=== PATIENT | male | born 1945 | race Caucasian/White ===

== ENCOUNTER 2017-09-08 18:26 | Emergency (ER) | payer OTHER ==
--- NOTE | 2017-09-08 18:49 | EDPHY ---
H & P Stated Complaint: anxiety Source: Patient Exam Limitations: No limitations - Personal History Current Tetanus Diphtheria and Acellular Pertussis (TDAP): Yes - Medical/Surgical History Hx Asthma: No Hx Chronic Respiratory Disease: No Hx Diabetes: No Hx Cardiac Disease: Yes Hx Renal Disease: No Hx Cirrhosis: No Hx Alcoholism: No Hx HIV/AIDS: No Hx Splenectomy or Spleen Trauma: No Other PMH: HTN,CHRON'S DX,BORDERLINE PERSONALITY D/O,PTSD,. DEPRESSION. PSH-- colostomy, large bowel resection, orthopedic - Social History Smoking Status: Light smoker Alcohol Use: Sober Time Seen by Provider: 09/08/17 18:30 HPI/ROS: CHIEF COMPLAINT: Anxiety HISTORY OF PRESENT ILLNESS: The patient is a 72-year-old homeless man who called an ambulance for anxiety. He states that he was evicted from his home a few weeks ago on the [facility]. He also lost his cat. When questioned further he states that he starts to feel suicidal when he gets like this. He states that he has tried cutting his wrist before several years ago. He denies any recent drug or alcohol use. He is currently not on any medications. He denies any psychiatric diagnosis history. REVIEW OF SYSTEMS: Constitutional: denies: chills, fever, recent illness, recent injury EENTM: denies: blurred vision, double vision, nose congestion Respiratory: denies: cough, shortness of breath Cardiac: denies: chest pain, irregular heart rate, lightheadedness, palpitations Gastrointestinal/Abdominal: denies: abdominal pain, diarrhea, nausea, vomiting, blood streaked stools Genitourinary: denies: dysuria, frequency, hematuria, pain Musculoskeletal: denies: joint pain, muscle pain Skin: denies: lesions, rash, jaundice, bruising Neurological: denies: headache, numbness, paresthesia, tingling, dizziness, weakness Hematologic/Lymphatic: denies: blood clots, easy bleeding, easy bruising Immunologic/allergic: denies: HIV/AIDS, transplant EXAM: GENERAL: Well-appearing, well-nourished and in no acute distress. HEAD: Atraumatic, normocephalic. EYES: Pupils equal round and reactive to light, extraocular movements intact, sclera anicteric, conjunctiva are normal. ENT: TMs normal, nares patent, oropharynx clear without exudates. Moist mucous membranes. NECK: Normal range of motion, supple without lymphadenopathy or JVD. LUNGS: Breath sounds clear to auscultation bilaterally and equal. No wheezes rales or rhonchi. HEART: Regular rate and rhythm without murmurs, rubs or gallops. ABDOMEN: Soft, nontender, normoactive bowel sounds. No guarding, no rebound. No masses appreciated. Ostomy in place BACK: No CVA tenderness, no spinal tenderness, step-offs or deformities EXTREMITIES: Normal range of motion, no pitting or edema. No clubbing or cyanosis. NEUROLOGICAL: Cranial nerves II through XII grossly intact. Normal speech, normal gait. 5/5 strength, normal movement in all extremities, normal sensation PSYCH: Normal mood, normal affect. Initially complained of anxiety but gradually more feet in to suicidal ideation. SKIN: Warm, dry, normal turgor, no visible rashes or lesions. (Vitor Florence) Constitutional: Initial Vital Signs Temperature (C) 36.4 C 09/08/17 18:30 Heart Rate 82 09/08/17 18:30 Respiratory Rate 16 09/08/17 18:30 Blood Pressure 167/91 H 09/08/17 18:30 O2 Sat (%) 91 L 09/08/17 18:30 O2 Delivery Mode Room Air Allergies/Adverse Reactions: No Known Allergies Allergy (Verified 09/08/17 18:30) Home Medications: Medication Instructions Recorded Lisinopril 09/26/13 Prozac 10 MG (RX) 10/16/13 buPROPion [Wellbutrin 100mg (RX)] 09/19/14 traZODone [traZODONE 50MG (*)] 50 mg PO 09/19/14 Medical Decision Making ED Course/Re-evaluation: 6:40 a.m.- The patient has been stable during my shift. He was given his usual medications. He is awaiting reassessment in the morning. The case will be signed out to the oncoming provider Dr. Quintanilla. (Leigh Ruiz) 0700-I assumed care of this patient change. He has a history of anxiety and has suicidal ideation. The plan is for him to be re-evaluated this morning by mental health. 0750-Reassessment by MH, pt not suicidal, contacts for safety, plan to d/c. MH resources given. (Xiomara Quintanilla) The patient seems to be malingering. I do not feel that he is actually suicidal. I feel that he is correction seeking. His story seems to change the further he is questioned. I will obtain lab work for medical clearance and have psychiatric team evaluate. I have not placed him on a hold at this point. 7:20 p.m. Patient is medically cleared for psychiatric evaluation. 9:00 p.m. the patient is sitting in the room. He has 2 large sandwiches at his bedside and is watching TV. He has an ostomy which he is changing. Discussed the case with mental health. They also feel that he is malingering for correction. He has an appointment with his psychiatrist tomorrow morning. They initially were going to let him sleep here overnight but I feel that this is an appropriate. We will speak with a psychiatrist again about discharging him. 10:00 p.m. I spoke with mental health again. There also agrees the patient is likely malingering however they would like to get more history and observe him overnight. He is now starting to state that he occasionally hears voices telling him to kill people. Care transferred to Dr. Ruiz at shift change. ( Vitor Florence) Differential Diagnosis: Partial list of the Differential diagnosis considered include but were not limited to; malingering, anxiety, depression, suicidality and although unlikely based on the history and physical exam, I also considered the homicidality, seizure, schizophrenia. (Vitor Florence) - Data Points Laboratory Results: Laboratory Results 09/08/17 18:55 09/08/17 18:55 Medications Given: Discontinued Medications Trazodone HCl (Trazodone) 150 mg PO EDNOW ONE Stop: 09/09/17 04:00 Last Admin: 09/09/17 04:15 Dose: 150 mg Departure - Departure Disposition: Home, Routine, Self-Care Clinical Impression: Suicidal ideation Condition: Fair Instructions: Suicide Prevention for Adults (ED) Additional Instructions: Follow-up with mental health as suggested. The [facility] has walk-in appointments for the homeless at the following days/locations. No appointment is needed. Thursday 8-10 am @ [facility] 11 AM-1 PM @ [facility] Thursday 8-10:30 AM @ [facility] Thursday 8-10 AM @ [facility] 2-4 PM @ [facility] Thursday 8-10 AM @ [facility] Referrals: [facility],. [Clinic] - As per Instructions
[2017-09-08 19:05] LABS: PLATELET COUNT 226 10^3/uL (150-400)
[2017-09-08 23:42] VITALS: RESP 18
[2017-09-09] MEDS ORDERED: traZODone 50 MG TAB PO ONE (03:59)
[2017-09-09 07:28] VITALS: BP 154/100; PULSE 83; TEMP 98.4; O2SAT 94
[2017-09-09] MEDS ORDERED: FLUoxetine 10 MG CAP PO SCH (09:00)
== END 2017-09-09 08:18 | disposition home or self-care (01) ==
LOC: EDUNIT#
PROC: GZ11ZZZ Psychological Tests, Personality and Behavioral (ICD-10-PCS; principal; 2017-09-08)
DX: R45.851 Suicidal ideations (principal); I10 Essential (primary) hypertension; F17.200 Nicotine dependence, unspecified, uncomplicated
CPT/HCPCS: 80305; G0480

== ENCOUNTER 2017-09-10 15:29 | Emergency (ER) | payer OTHER ==
[2017-09-10 15:37] VITALS: RESP 18
--- NOTE | 2017-09-10 16:49 | EDPHY ---
H & P Time Seen by Provider: 09/10/17 16:42 HPI/ROS: Chief complaint. Ileostomy bag rupture HPI. 72-year-old male here with complaint of ileostomy bag rupturing this afternoon. Apparently it was an old ostomy bag and he did not have a replacement to put a new 1 on and then this 1 ruptured. He has no abdominal pain or fever vomiting. Patient was seen in our emergency department on September 08 for anxiety and suicide ideation. ROS Constitutional. no fever/chills, no weakness Eyes. no problems with vision ENT. no sore throat, no nasal drainage Cardiovascular. no chest pain Respiratory. no shortness of breath, no cough Abdominal. no abdominal pain, no nausea/vomiting, no diarrhea. Ileostomy bag rupture . no problems urinating MS. no calf pain/swelling, no neck/back pain, no joint pain Skin. no rash Lymph. no swollen glands Neuro. no headache, no dizziness, no difficulty walking or with speech Past Medical/Surgical History: Past medical history hypertension, Crohn's, colostomy after large bowel resection. Borderline personality, PTSD, depression Social History: Single, daily smoker, no alcohol Smoking Status: Light smoker Physical Exam: General Appearance: Alert well-developed male mild distress vital signs are stable Eyes: Pupils equal and round no pallor or injection. ENT, Mouth: Mucous membranes are moist. Respiratory: There are no retractions, lungs are clear to auscultation. Cardiovascular: Regular rate and rhythm. Gastrointestinal: Abdomen is soft and nontender, no masses, bowel sounds normal. Ileostomy bag has ruptured Neurological: Awake and alert, sensory and motor exams grossly normal. Skin: Warm and dry, no rashes. Musculoskeletal: Neck is supple nontender. Extremities symmetrical, full range of motion. Psychiatric: Patient is oriented X 3, there is no agitation. Constitutional: Initial Vital Signs Temperature (C) 36.4 C 09/10/17 15:32 Heart Rate 76 09/10/17 15:32 Respiratory Rate 18 09/10/17 15:32 Blood Pressure 178/96 H 09/10/17 15:32 O2 Sat (%) 92 09/10/17 15:32 O2 Delivery Mode Room Air Allergies/Adverse Reactions: No Known Allergies Allergy (Verified 09/08/17 18:30) Home Medications: Medication Instructions Recorded Lisinopril 09/26/13 Prozac 10 MG (RX) 10/16/13 buPROPion [Wellbutrin 100mg (RX)] 09/19/14 traZODone [traZODONE 50MG (*)] 50 mg PO 09/19/14 Medical Decision Making Procedures: Ileostomy bag is replaced. ED Course/Re-evaluation: 530 patient is replacing his ostomy bag. He has been given supplies. Patient has no complaints Differential Diagnosis: Ostomy bag rupture without intra-abdominal findings. Departure - Departure Disposition: Home, Routine, Self-Care Clinical Impression: Ostomy bag rupture Condition: Good Instructions: Colostomy Care (ED) Additional Instructions: Return for worsening symptoms. Referrals: NOT,SURE [Other] - As per Instructions [facility] [Outside] - 5-7 days, call for appt.
[2017-09-10 18:20] VITALS: BP 166/99; PULSE 74; TEMP 98.6; O2SAT 94
--- NOTE | 2017-09-11 09:48 | ASMTCMCOM ---
CM Note CM Note Notes: Ostomy suuplies gathered and provided to patient upon his arrival to the ER with ostomy bag rupture. Patient tells this CM that he is currently enrolled in the coordinated entry program and is staying at the [facility]. I have provided him a bus pass to assure that he will be able to arrive at the senior living in time to check in for the night. Juan HUGHES updated, and informed of patient's plans to return to the senior living this evening Date Signed: 09/11/2017 09:48 AM Electronically Signed By:Melissa Madrid RN
== END 2017-09-10 17:57 | disposition home or self-care (01) ==
LOC: EDUNIT#
DX: K94.03 Colostomy malfunction (principal); I10 Essential (primary) hypertension; F17.200 Nicotine dependence, unspecified, uncomplicated